=== PATIENT | male | born 1980 | race Caucasian/White ===

== ENCOUNTER 2021-05-01 21:12 | Emergency (ER) | payer OTHER ==
[2021-05-01 22:21] LABS: HEMOGLOBIN 13.1 gm/dl (14.0-17.5); RED BLOOD COUNT 4.46 M/UL (4.20-5.50); WHITE BLOOD COUNT 9.4 K/UL (4.5-11.0)
[2021-05-01 22:53] LABS: BUN/CREATININE RATIO 16 (0-10)
== END 2021-05-02 04:04 | disposition home or self-care (01) ==
LOC: ER1 21:12
PROVIDERS: Emergency Medicine
DX: M79.89 Other specified soft tissue disorders (principal); Z20.822 Contact with and (suspected) exposure to COVID-19
CPT/HCPCS: 71045; 80053; 82550; 82553; 83874; 83880; 84484; 85025; 85379; 93005; 96372; 99285; J1650; Q9967; U0002

== ENCOUNTER → 2021-05-02 | Outpatient (CLI) | payer OTHER | LOC: US 09:33 → GENOP 09:33 | DX: M79.605 Pain in left leg (principal); M79.89 Other specified soft tissue disorders | CPT/HCPCS: 93971 ==

== ENCOUNTER → 2021-06-14 | Outpatient (CLI) | payer OTHER | LOC: SLEEP-COR 21:30 | DX: G47.33 Obstructive sleep apnea (adult) (pediatric) (principal) | CPT/HCPCS: 95811 ==